=== PATIENT | female | born 1975 | race Hispanic/Latino ===

== ENCOUNTER 2020-12-12 17:07 | Observation (INO) | payer BC ==
[~2020-12-12] VITALS: Ht 157.5 cm; Wt 70.3 kg
[2020-12-12 17:58] VITALS: BP 139/75
[2020-12-12 20:03] LABS: HEMATOCRIT 23.8 % (36-48); MEAN CORPUSCULAR HEMOGLOBIN 16.9 pg (27.0-33.0); MEAN CORPUSCULAR HGB CONC 26.5 g/dL (32.0-36.0); PLATELET COUNT (AUTO) 276 K/uL (130-400); RED BLOOD CELL COUNT(AUTO) 3.72 MIL/uL (4.00-5.50); RED CELL DISTRIBUTION WIDTH 20.6 % (11.0-15.5); WHITE BLOOD COUNT (AUTO) 5.9 K/uL (4.8-10.8)
[2020-12-12 21:28] VITALS: BP 125/76
[2020-12-12 23:38] VITALS: BP 132/63
[2020-12-13 03:43] VITALS: BP 122/55
[2020-12-13] MEDS ORDERED: ACETAMINOPHEN 325 MG TAB PO PRN (04:30)
[2020-12-13] MEDS ORDERED: ACETAMINOPHEN 325 MG TAB ONE (04:49)
[2020-12-13 06:31] LABS: HEMATOCRIT 32.4 % (36-48)
[2020-12-13 07:07] VITALS: BP 107/68
[2020-12-13 11:24] VITALS: BP 124/71
[2020-12-13 15:32] VITALS: BP 127/70
[2020-12-13 20:13] VITALS: BP 124/69
[2020-12-13 23:42] VITALS: BP 132/71
[2020-12-14] VITALS (22 sets, daily range): BP systolic 96–136; BP diastolic 42–85
[2020-12-14] MEDS ORDERED: LACTATED RINGERS 1000ML 1,000 ML IV ONE (06:56)
[2020-12-14] MEDS ORDERED: PROPOFOL 10 MG/ML 20ML VIAL IV ONE (07:23)
[2020-12-14] MEDS ORDERED: LIDOCAINE HCL MPF 1% 5ML VIAL ONE (07:23)
[2020-12-14] MEDS ORDERED: SUCCINYLCHOLINE CHLORIDE 20 MG/ML 10 ML VIAL ONE (07:23)
[2020-12-14] MEDS ORDERED: MIDAZOLAM HCL 1 MG/ML 2ML VIAL ONE (07:23)
[2020-12-14] MEDS ORDERED: FENTANYL CITRATE PF 50 MCG/1 ML 2ML VIAL ONE (07:24)
[2020-12-14] MEDS ORDERED: MEPERIDINE-PF 25 MG/ML SYG ONE (08:29)
== END 2020-12-14 14:00 | disposition home or self-care (01) ==
LOC: WSH 17:07
PROVIDERS: ADMIT Specialist; ATTEND Specialist
DX: N92.0 Excessive and frequent menstruation with regular cycle (principal); D64.9 Anemia, unspecified; N85.4 Malposition of uterus; Z86.16 Personal history of COVID-19
CPT/HCPCS: 36415 ×2; 36430 ×2; 58120; 85014; 85018; 85027; 86850; 86900; 86901; 86923; 96360; 96361; A4222; A4223; A4335; A4351; G0378 ×39; G0379; J0330; J2175; J2250; J2704; J3010; J3490; J7030; J7120; P9016 ×2

== ENCOUNTER → 2021-02-24 | Outpatient (CLI) | payer BC | END | disposition home or self-care (01) | LOC: RAH 15:50 | PROVIDERS: ATTEND Specialist | DX: Z12.31 Encounter for screening mammogram for malignant neoplasm of breast (principal) | CPT/HCPCS: 77067 ==

== ENCOUNTER → 2025-05-01 | Outpatient (CLI) | payer BC | END | disposition home or self-care (01) | LOC: RAH 15:40 | PROVIDERS: ATTEND General Practice | DX: Z12.31 Encounter for screening mammogram for malignant neoplasm of breast (principal) | CPT/HCPCS: 77067 ==